=== PATIENT | male | born 1990 | race Caucasian/White ===

== ENCOUNTER 2017-09-12 15:10 | Emergency (ER) | payer OTHER ==
[~2017-09-12] VITALS: Ht 175.3 cm; Wt 85.3 kg
[2017-09-12 17:26] LABS: HEMATOCRIT 42.1 % (42.0-52.0); HEMOGLOBIN 14.2 gm/dL (14.0-18.0); MCH 28.4 pg (26.0-34.0); MCHC 33.6 g/dL (28.0-37.0); MCV 84.4 fL (80.0-100.0); RBC 4.98 mil/uL (4.50-6.00); RDW 13.9 % (10.5-14.5); WBC 10.3 thou/uL (4.0-11.0)
[2017-09-12 17:35] LABS: CALCIUM 9.1 mg/dL (8.5-10.1); CREATININE 1.1 mg/dL (0.7-1.3); POTASSIUM 3.8 mmol/L (3.5-5.1)
[2017-09-12 18:23] LABS: URINE BILIRUBIN NEGATIVE (Negative); URINE BLOOD NEGATIVE (Negative); URINE CLARITY CLEAR; URINE COLOR YELLOW; URINE GLUCOSE-RANDOM* NEGATIVE (Negative); URINE KETONES NEGATIVE (Negative); URINE LEUKOCYTES-REFLEX NEGATIVE (Negative); URINE NITRITE-REFLEX NEGATIVE (Negative); URINE PROTEIN (DIPSTICK) NEGATIVE (Negative); URINE SPECIFIC GRAVITY >= 1.030 (1.005-1.035)
[2017-09-12] MEDS ORDERED: PROMETHAZINE/C118 ML PO (18:49)
[2017-09-12] MEDS ORDERED: PROVENTIL HFA6.7 G1 INH (18:49)
[2017-09-12] MEDS ORDERED: AZITHROMYC200 MG/52 PO (18:49)
[2017-09-12] MEDS ORDERED: PREDNISOLO20 MG/5 ML PO (18:49)
[2017-09-12 19:00] VITALS: BP 123/87
== END 2017-09-12 19:00 | disposition home or self-care (01) ==
LOC: ER 15:10
PROVIDERS: Physician Assistant
DX: R05 Cough (principal); E87.2 Acidosis; R09.89 Other specified symptoms and signs involving the circulatory and respiratory systems